=== PATIENT | female | born 1945 | race Two or more races ===

== ENCOUNTER 2018-08-23 14:40 | Emergency (ER) | payer MEDICARE, OTHER ==
[~2018-08-23] VITALS: Ht 162.6 cm; Wt 81.6 kg
[2018-08-23 14:54] VITALS: BP 148/76
[2018-08-23 15:43] LABS: Basophils # (auto) 0 uL; Basophils % (auto) 0.5 % (0.0-2.0); Eosinophils # (auto) 0.2 uL; Eosinophils % (auto) 2.3 % (0.0-7.0); Hematocrit 42.1 % (36.0-46.0); Hemoglobin 14.4 g/dL (12.2-16.2); Lymphocytes # (auto) 3.4 uL; Lymphocytes % (auto) 37.8 % (10.0-50.0); Mean Corpuscular Hgb Conc. 34.2 g/dL (32.0-36.0); Mean Corpuscular Volume 90.8 fL (80.0-100.0); Monocytes # (auto) 0.9 uL; Monocytes % (auto) 10.3 % (0.0-12.0); Neutrophils # (auto) 4.4 uL; Neutrophils % (auto) 49.1 % (37.0-80.0); Nucleated Red Blood Cells % 0.1 %; Platelet Count (auto) 347 10^3/uL (140-450); Red Blood Cells 4.64 10^6/uL (4.0-5.20); Red Cell Distribution Width 14.2 % (11.8-14.3)
[2018-08-23 15:49] LABS: Albumin 3.2 g/dL (3.4-5.0); Calcium 8.5 mg/dL (8.5-10.1); Magnesium 2.2 mg/dL (1.6-2.6); Potassium 3.7 mmol/L (3.5-5.1)
[2018-08-23 15:54] LABS: BUN/Creatinine Ratio 9.9; Bilirubin, Total 0.3 mg/dL (0.2-1.0); Total Protein 7.1 g/dL (6.4-8.2)
== END 2018-08-23 21:30 | disposition left against medical advice (07) ==
LOC: ER 14:48
DX: R53.1 Weakness (principal); Z53.21 Procedure and treatment not carried out due to patient leaving prior to being seen by health care provider
CPT/HCPCS: 36415; 71046; 80053; 83735; 85025; 93005

== ENCOUNTER 2018-08-24 14:25 | Emergency (ER) | payer MEDICARE ==
[~2018-08-24] VITALS: Ht 157.5 cm; Wt 67.6 kg
[2018-08-24 15:50] LABS: Basophils # (auto) 0.1 uL; Basophils % (auto) 1.4 % (0.0-2.0); Eosinophils # (auto) 0.1 uL; Eosinophils % (auto) 1.7 % (0.0-7.0); Hematocrit 43.4 % (36.0-46.0); Hemoglobin 14.5 g/dL (12.2-16.2); Lymphocytes # (auto) 2.2 uL; Lymphocytes % (auto) 30.3 % (10.0-50.0); Mean Corpuscular Hemoglobin 30.7 pg (28.0-32.0); Mean Corpuscular Hgb Conc. 33.4 g/dL (32.0-36.0); Mean Corpuscular Volume 91.9 fL (80.0-100.0); Monocytes # (auto) 0.9 uL; Monocytes % (auto) 11.9 % (0.0-12.0); Neutrophils % (auto) 54.7 % (37.0-80.0); Nucleated Red Blood Cells % 0.2 %; Platelet Count (auto) 346 10^3/uL (140-450); Red Blood Cells 4.72 10^6/uL (4.0-5.20); Red Cell Distribution Width 14.1 % (11.8-14.3); White Blood Cell 7.3 10^3/uL (4.4-10.8)
[2018-08-24] MEDS ORDERED: SODIUM CHLORIDE 0.9% 1,000 ML IV ONE ×2 (15:51)
[2018-08-24 16:04] LABS: Albumin 3.2 g/dL (3.4-5.0); Blood Urea Nitrogen 7 mg/dL (7-18); Calcium 8.6 mg/dL (8.5-10.1); Carbon Dioxide 22 mmol/L (21-32); Glucose 107 mg/dL (74-106)
[2018-08-24 16:07] LABS: Alanine Aminotransferase 42 U/L (13-56); Alkaline Phosphatase 63 U/L (45-117); Anion Gap 9 (5-15); Aspartate Aminotransferase 54 U/L (15-37); BUN/Creatinine Ratio 8.6; Bilirubin, Total 0.4 mg/dL (0.2-1.0); Chloride 108 mmol/L (98-107); GFR African American 90 mL/min; GFR Non-African American 74 mL/min; Potassium 3.5 mmol/L (3.5-5.1); Sodium 139 mmol/L (136-145); Total Protein 7.3 g/dL (6.4-8.2)
[2018-08-24 16:32] LABS: INR 0.92 (0.9-1.15); Partial Thromboplastin Time 24.6 sec (23.78-33.04); Prothrombin Time 9.9 sec (9.27-12.13)
[2018-08-24] MEDS ORDERED: cefTRIAXone 1GM/50ML D5W 50 ML IV ONE (17:30)
[2018-08-24 22:26] VITALS: BP 126/69
== END 2018-08-24 22:58 | disposition home or self-care (01) ==
LOC: ER 14:25
DX: E46 Unspecified protein-calorie malnutrition (principal); Z68.27 Body mass index [BMI] 27.0-27.9, adult
CPT/HCPCS: 36415; 70450; 80053; 82962; 83605; 84484; 85025; 85610; 85730; 87040; 93005; 96365; 99284; J0696

== ENCOUNTER 2019-10-27 08:00 | Inpatient (IN) | payer MEDICARE, BC ==
[~2019-10-27] VITALS: Ht 162.6 cm; Wt 54.4 kg
[2019-10-27] VITALS (7 sets, daily range): BP systolic 69–110; BP diastolic 20–86
[2019-10-27] MEDS ORDERED: NOREPINEPHRINE 8 MG/250ML KIT 250 ML IV ONE (08:36)
[2019-10-27] MEDS ORDERED: SODIUM CHLORIDE 0.9% 1,000 ML IV ONE ×2 (08:49→11:00)
[2019-10-27] MEDS ORDERED: NOREPINEPHRINE 8 MG/250ML KIT 250 ML IV SCH (09:00)
[2019-10-27 10:12] LABS: Calcium 8.3 mg/dL (8.5-10.1)
[2019-10-27 10:15] LABS: Hematocrit 19.3 % (36.0-46.0); Mean Corpuscular Hemoglobin 27.2 pg (28.0-32.0); Mean Corpuscular Hgb Conc. 26.9 g/dL (32.0-36.0); Mean Corpuscular Volume 101.4 fL (80.0-100.0); Platelet Count (auto) 189 10^3/uL (140-450); Red Cell Distribution Width 18.8 % (11.8-14.3); White Blood Cell 11.4 10^3/uL (4.4-10.8)
[2019-10-27 10:18] LABS: Urine Bacteria FEW /hpf (None Seen); Urine Blood Negative /uL (Negative); Urine Hyaline Cast MOD /lpf (0 - 2); Urine Mucus FEW (None Seen); Urine Specific Gravity 1.029 (1.001-1.035); Urine WBC 2 /hpf (0 - 5)
[2019-10-27 10:18] LABS: BUN/Creatinine Ratio 16.3; Bilirubin, Total 0.8 mg/dL (0.2-1.0); Total Protein 5.6 g/dL (6.4-8.2)
[2019-10-27 10:24] LABS: Hemoglobin 5.2 g/dL (12.2-16.2)
[2019-10-27 10:25] LABS: Basophils % (manual) 0 (0.0-2.0); Blast Cells 0; Eosinophils % (manual) 0 (0-7); Myelocytes % 0; Promyelocytes % 0; Reactive Lymphocytes 0
[2019-10-27 10:32] LABS: Albumin 0.8 g/dL (3.4-5.0)
[2019-10-27 10:36] LABS: Amphetamine Screen, Urine NEGATIVE (NEGATIVE); Barbiturate Scree,Urine NEGATIVE (NEGATIVE); Benzodiazephine Screen, Urine NEGATIVE (NEGATIVE); Cannabinoid Screen, Urine NEGATIVE (NEGATIVE); Cocaine Screen, Urine NEGATIVE (NEGATIVE); Opiate Scree,Urine NEGATIVE (NEGATIVE); Phencyclidine Screen, Urine NEGATIVE (NEGATIVE)
[2019-10-27 10:55] LABS: INR 2.55 (0.9-1.15)
[2019-10-27 11:01] LABS: Partial Thromboplastin Time > 139.0 sec (23.64-32.05)
[2019-10-27 11:13] LABS: Band Neutrophils % (manual) 10; Lymphocytes % (manual) 14 (10.0-50.0); Metamyelocytes % 11; Monocytes % (manual) 3 (0-12)
[2019-10-27] MEDS ORDERED: ALBUMIN 25% 100 ML IV ONE (11:45)
[2019-10-27] MEDS ORDERED: cefTRIAXone 1GM/50ML D5W 50 ML IV ONE (11:45)
[2019-10-27] MEDS ORDERED: CALCIUM CHL 100MG/ML 1,000 MG in D5W 5% 100 ML IV ONE (11:45)
[2019-10-27] MEDS ORDERED: SODIUM BICARBONATE 8.4 % INJ 50ML VIAL IV ONE ×3 (11:45→19:15)
[2019-10-27] MEDS ORDERED: SODIUM BICARBONATE 8.4% INJ 50ML SYRINGE ONE (12:10)
[2019-10-27] MEDS ORDERED: PHENYLEPHRINE IV 250 ML IV ONE ×4 (12:18→16:45)
--- NOTE | 2019-10-27 13:30 | NUR ---
RT NOTE: CALLED TO BEDSIDE FOR TRANSPORT TO CT. PLACED ONTO TRANSPORT VENT. RT, 2 RNs AND 2 TECH BEDSIDE FOR TRANSPORT. TOTAL TIME ABOUT 20MIN. RETURNED TO ROOM AND PLACE BACK ONTO BEDSIDE VENT W/O INCIDENT. WILL CONTINUE TO MONITOR.
[2019-10-27] MEDS ORDERED: metroNIDAZOLE 500MG/100ML 100 ML IV ONE (14:15)
[2019-10-27] MEDS ORDERED: PIPERACILLIN-TAZO 4.5GM 100 ML IV ONE (14:15)
[2019-10-27 14:18] LABS: Lactic Acid w/Reflex 17.1 mmol/L (0.4-2.0)
[2019-10-27] MEDS ORDERED: DEXTROSE 10% 1,000 ML IV ONE (16:05)
[2019-10-27] MEDS ORDERED: DEXTROSE 10% 1,000 ML IV SCH (16:30)
[2019-10-27] MEDS ORDERED: NITROGLYCERIN 0.4 MG SL TAB SL PRN (16:45)
[2019-10-27] MEDS ORDERED: CLINDAMYCIN 900MG IV 50 ML IV ONE (16:45)
[2019-10-27] MEDS ORDERED: PANTOPRAZOLE 40 MG/10 ML VIAL INJ IV ONE (16:45)
[2019-10-27] MEDS ORDERED: MORPHINE SULF INJ 2 MG/ML SYRINGE 1ML IV PRN (16:45)
[2019-10-27] MEDS ORDERED: EPINEPHrine HCL INJECTION 4 MG in SODIUM CHL 0.9% 250 ML IV ONE (16:45)
[2019-10-27] MEDS ORDERED: PIPERACILLIN-TAZOB 3.375GM 100 ML IV ONE (16:45)
[2019-10-27] MEDS ORDERED: CLINDAMYCIN 900MG IV 50 ML IV SCH (16:48)
[2019-10-27] MEDS ORDERED: SODIUM BICARBONATE 50ML VIAL 50 ML in D5W/SOD CHL 0.45% 1,000 ML IV SCH (17:00)
[2019-10-27 18:05] LABS: Amylase 7 U/L (25-115); Lipase < 10 U/L (73-393)
[2019-10-27] MEDS ORDERED: phytonadione 10 MG in SODIUM CHL 0.9% 50 ML IV ONE (19:15)
[2019-10-27] MEDS ORDERED: SODIUM BICARBONATE 50ML VIAL 150 ML in D5W 5% 1,000 ML IV SCH (19:30)
[2019-10-27 19:53] LABS: INR 2.54 (0.9-1.15)
[2019-10-27 20:13] LABS: Sodium 140 mmol/L (136-145)
[2019-10-27 20:14] LABS: Anion Gap 25 (5-15); BUN/Creatinine Ratio 15.6; Blood Urea Nitrogen 36 mg/dL (7-18); Chloride 111 mmol/L (98-107); GFR African American 27 mL/min; GFR Non-African American 22 mL/min; Glucose 184 mg/dL (74-106)
[2019-10-27 20:15] LABS: Alanine Aminotransferase 667 U/L (13-56); Alkaline Phosphatase 119 U/L (45-117); Aspartate Aminotransferase 4012 U/L (15-37); Bilirubin, Total 1.7 mg/dL (0.2-1.0); Calcium 7.1 mg/dL (8.5-10.1); Total Protein 3.9 g/dL (6.4-8.2)
[2019-10-27 20:19] LABS: Hemoglobin 13.6 g/dL (12.2-16.2)
[2019-10-27 20:21] LABS: Hematocrit 48.2 % (36.0-46.0)
[2019-10-27 20:35] LABS: Carbon Dioxide 4 mmol/L (21-32); Potassium 8.7 mmol/L (3.5-5.1)
[2019-10-27] MEDS ORDERED: PANTOPRAZOLE 40 MG/10 ML VIAL INJ IV SCH (22:00)
[2019-10-27] MEDS ORDERED: PIPERACILLIN-TAZOB 3.375GM 100 ML IV SCH (22:00)
[2019-10-28] MEDS ORDERED: SODIUM BICARBONATE 8.4% INJ 50ML SYRINGE IV ONE ×2 (13:38→14:05)
[2019-10-28] MEDS ORDERED: EPINEPHrine HCL 1 MG/10 ML SYRG IV ONE ×2 (13:38→14:05)
[2019-10-28] MEDS ORDERED: CALCIUM CHLOR(10%) 100MG/ML 10ML SYRINGE IV ONE (14:03)
== END 2019-10-27 20:25 | disposition expired | DRG 871 ==
LOC: EDUNIT# 08:00 → EDBD 08:00 → ER 08:00 → EDSEX 08:00 → TELE 08:01
PROVIDERS: ADMIT Internal Medicine; ATTEND Internal Medicine
PROC: 5A1935Z Respiratory Ventilation, Less than 24 Consecutive Hours (ICD-10-PCS; principal; 2019-10-27)
PROC: 0BH17EZ Insertion of Endotracheal Airway into Trachea, Via Natural or Artificial Opening (ICD-10-PCS; 2019-10-27)
PROC: 30233N1 Transfusion of Nonautologous Red Blood Cells into Peripheral Vein, Percutaneous Approach (ICD-10-PCS; 2019-10-27)
PROC: 5A12012 Performance of Cardiac Output, Single, Manual (ICD-10-PCS; 2019-10-27)
DX: A41.9 Sepsis, unspecified organism (principal); E43 Unspecified severe protein-calorie malnutrition; J10.00 Influenza due to other identified influenza virus with unspecified type of pneumonia; J96.00 Acute respiratory failure, unspecified whether with hypoxia or hypercapnia; K76.7 Hepatorenal syndrome; N17.0 Acute kidney failure with tubular necrosis; R65.21 Severe sepsis with septic shock; K57.20 Diverticulitis of large intestine with perforation and abscess without bleeding; D68.9 Coagulation defect, unspecified; D62 Acute posthemorrhagic anemia; E16.2 Hypoglycemia, unspecified; E87.5 Hyperkalemia; I46.9 Cardiac arrest, cause unspecified; K72.90 Hepatic failure, unspecified without coma; R73.9 Hyperglycemia, unspecified; Z90.49 Acquired absence of other specified parts of digestive tract; Z68.20 Body mass index [BMI] 20.0-20.9, adult; Z03.818 Encounter for observation for suspected exposure to other biological agents ruled out
CPT/HCPCS: 31500; 36415; 36600; 51702; 70450; 71045; 74176; 76775; 80053; 80307; 81001; 82150; 82550; 82805; 82962; 83605; 83690; 83735; 84443; 84484; 85007; 85014; 85018; 85027; 85045; 85610; 85730; 86850; 86900; 86901; 86920; 87040; 87070; 87077; 87086; 87186; 87205; 87804; 87880; 92950; 93005; 94002; 96361; 96365; 96366; 96367; 99291; 99292; C9113; G0378; J0171; J0696; J2543; J3430; J3490; J7060; P9047